=== PATIENT | female | born 1960 | race Caucasian/White ===

== ENCOUNTER → 2017-01-19 | Outpatient (CLI) | payer MEDICARE, MEDICAID ==
[~2017-01-19] MED LIST: ALBU18HF; ALBU8.5H3 INH; ALBU8.5H5 INH; ARIP5TAB6 PO; ASPI-621 PO; BENZ100C4 PO; BISA10SU54 PR; CARI350T PO; CARI350T14 PO; CITA20TA5 PO; CYCL15CA; DIVA250T4 PO; DOCU-30 PO; ENOX40SY4 SQ; ESCI10TA10 PO; FLUO10CA7 PO; FLUO20TA25 PO; FLUO40CA2 PO; FLUO40CA9; GABA300C10 PO; GUAI5SYR PO; KETO10TA PO; LORA2TAB PO; METH4TAB7 PO; METO25TA35 PO; METO25TA91 PO; NICO1PAT4 TD; NITR0.4T8 SL; OMEP-110 PO; OMEP10CA4 PO; ONDA-39 PO; ONDA-40 PO; ONDA4FIL4; OXYGEN INH; POLY17PO5 PO; PROM25AM6 PR; PROM25SU34 RC; PROM5POW; SIMV20TA3 PO; SIMV40TA3 PO; SOY155CA PO; VARE1TAB20
[2017-01-19 16:00] LABS: BLOOD UREA NITROGEN 21 mg/dL (7-18)
[2017-01-19 16:05] LABS: ASPARTATE AMINO TRANSFERASE 16 U/L (15-37)
== END | disposition home or self-care (01) ==
LOC: CFH 11:34
PROVIDERS: ATTEND Family Medicine
DX: Z12.31 Encounter for screening mammogram for malignant neoplasm of breast (principal); E78.2 Mixed hyperlipidemia; I10 Essential (primary) hypertension
CPT/HCPCS: 36415; 80053; 80061; 82043; G0202

== ENCOUNTER 2017-11-21 12:30 | Observation (INO) | payer MEDICARE, MEDICAID ==
[~2017-11-21] VITALS: Ht 165.1 cm; Wt 96.4 kg
[~2017-11-21 12:30] MED LIST changes: -ALBU8.5H3 INH; +ALBU8.5H8 INH; +ARIP5TAB13 PO; -ARIP5TAB6 PO; +BENZ-17 PO; -BENZ100C4 PO; -CYCL15CA; +CYCL15CA20; +DOCU-131 PO; -DOCU-30 PO; +NICO-486 TD; -NICO1PAT4 TD; +NITR0.4T28 SL; -NITR0.4T8 SL; -ONDA-39 PO; -ONDA-40 PO; +ONDA4TAB12 PO; +ONDA8TAB15 PO
[2017-11-21 14:11] LABS: BASOPHILS # (AUTO) 0.09 x10^3/uL (0-0.1); BASOPHILS % (AUTO) 1 % (0-1); EOSINOPHILS # (AUTO) 0.26 x10^3/uL (0-0.4); EOSINOPHILS % (AUTO) 2 % (1-7); LYMPHOCYTES # (AUTO) 4.89 x10^3/uL (1-3.4); LYMPHOCYTES % (AUTO) 44 % (22-44); MD NO; MEAN CORPUSCULAR HEMOGLOBIN 33.1 pg (27.0-34.8); MEAN CORPUSCULAR HGB CONC 33.7 g/dL (32.4-35.8); MEAN CORPUSCULAR VOLUME 98.3 fL (80-100); MEAN PLATELET VOLUME 8.8 fL (7.4-10.4); MONOCYTES # (AUTO) 0.83 x10^3/uL (0.2-0.8); MONOCYTES % (AUTO) 7 % (2-9); NEUTROPHILS # (AUTO) 5.14 x10^3/uL (1.8-6.8); NEUTROPHILS % (AUTO) 46 % (42-75); PLATELET COUNT 254 x10^3/uL (130-400); RED BLOOD COUNT 4.46 x10^6/uL (3.82-5.3); RED CELL DISTRIBUTION WIDTH 13.1 % (9.6-15.2)
[2017-11-21 14:26] LABS: CHLORIDE 107 mmol/L (98-107)
[2017-11-21 14:31] LABS: ALANINE AMINOTRANSFERASE 38 U/L (12-78); ALBUMIN 3.8 g/dL (3.4-5.0); ALKALINE PHOSPHATASE 111 U/L (45-117); ANION GAP 6 mmol/L (5-15); BILIRUBIN,TOTAL 0.4 mg/dL (0.2-1.0); CALCIUM 8.7 mg/dL (8.5-10.1); CREATININE 1.06 mg/dL (0.55-1.02); TOTAL PROTEIN 7.6 g/dL (6.4-8.2)
[2017-11-21 14:37] LABS: MICROSCOPIC AUTO
[2017-11-21 14:39] LABS: CULTURE INDICATED? YES
[2017-11-21 14:55] LABS: SALICYLATE LEVEL 2.9 mg/dL (2.8-20.0)
[2017-11-21 14:57] LABS: AMPHETAMINE SCREEN, URINE Negative (Negative); BARBITURATE SCREEN, URINE Negative (Negative); BENZODIAZEPINE SCREEN, URINE Negative (Negative); CANNABINOID SCREEN, URINE Positive (Negative); COCAINE SCREEN, URINE Negative (Negative); METHADONE SCREEN, URINE Negative (Negative); OPIATE SCREEN, URINE Negative (Negative)
[2017-11-21 14:58] LABS: ACETAMINOPHEN 2 mcg/mL (10-30)
[2017-11-21] MEDS ORDERED: KETOROLAC 30 MG/1 ML ONE (15:45)
[2017-11-21] MEDS ORDERED: ACETAMINOPHEN 500 MG TABLET ONE (15:45)
[2017-11-21] MEDS ORDERED: ACETAMINOPHEN 500 MG TABLET PO ONE (16:00)
[2017-11-21] MEDS ORDERED: KETOROLAC 30 MG/1 ML IM ONE (16:00)
[2017-11-21] MEDS ORDERED: DIVALPROEX 500 MG TAB.ER.24H PO ONE (20:00)
[2017-11-21] MEDS ORDERED: ACETAMINOPHEN 325 MG TABLET PO PRN (21:30)
[2017-11-21] MEDS ORDERED: HALOPERIDOL 5 MG/ML IM PRN (21:30)
[2017-11-21] MEDS: DIVALPROEX 250 MG TABLET.DR PO SCH (21:30)
[2017-11-21] MEDS ORDERED: ONDANSETRON ODT 4 MG PO PRN (21:30)
[2017-11-21] MEDS ORDERED: GABAPENTIN 300 MG CAPSULE ONE (22:08)
[2017-11-21] MEDS: LACTULOSE 10 GM/15 ML UDC PO SCH (23:06)
[2017-11-21] MEDS: SIMVASTATIN 20 MG TABLET PO SCH (23:06)
[2017-11-21] MEDS: GABAPENTIN 300 MG CAPSULE PO SCH (23:06)
[2017-11-22] MEDS ORDERED: GABAPENTIN 300 MG CAPSULE ONE ×3 (08:12→20:59)
[2017-11-22] MEDS ORDERED: METOPROLOL TARTRATE 25 MG TABLET ONE (08:12)
[2017-11-22] MEDS: METOPROLOL TARTRATE 25 MG TABLET PO SCH (09:38)
[2017-11-22] MEDS: LACTULOSE 10 GM/15 ML UDC PO SCH ×2 (09:38→22:08)
[2017-11-22] MEDS: GABAPENTIN 300 MG CAPSULE PO SCH ×3 (09:38→22:07)
[2017-11-22] MEDS ORDERED: LORazepam 1MG TABLET ONE ×3 (09:39→21:49)
[2017-11-22] MEDS: LORazepam 1MG TABLET PO SCH ×3 (09:41→22:07)
[2017-11-22] MEDS: SIMVASTATIN 20 MG TABLET PO SCH (22:07)
[2017-11-22] MEDS: DIVALPROEX 250 MG TABLET.DR PO SCH (22:08)
[2017-11-23] MEDS: LACTULOSE 10 GM/15 ML UDC PO SCH ×2 (09:19→21:40)
[2017-11-23] MEDS: GABAPENTIN 300 MG CAPSULE PO SCH ×3 (09:19→21:39)
[2017-11-23] MEDS: METOPROLOL TARTRATE 25 MG TABLET PO SCH (09:19)
[2017-11-23] MEDS ORDERED: LORazepam 1MG TABLET ONE ×2 (09:54→15:30)
[2017-11-23] MEDS: LORazepam 1MG TABLET PO SCH ×3 (10:02→21:38)
[2017-11-23] MEDS ORDERED: HALOPERIDOL 5 MG/ML ONE (16:14)
[2017-11-23 20:19] VITALS: BP 145/81
[2017-11-23] MEDS: SIMVASTATIN 20 MG TABLET PO SCH (21:39)
[2017-11-23] MEDS: DIVALPROEX 250 MG TABLET.DR PO SCH (21:40)
[2017-11-24 07:54] VITALS: BP 107/83
[2017-11-24] MEDS: LACTULOSE 10 GM/15 ML UDC PO SCH ×2 (08:08→08:38)
[2017-11-24] MEDS: LORazepam 1MG TABLET PO SCH (08:08)
[2017-11-24] MEDS: GABAPENTIN 300 MG CAPSULE PO SCH (08:09)
[2017-11-24 09:21] VITALS: BP 120/76
[2017-11-24] MEDS: METOPROLOL TARTRATE 25 MG TABLET PO SCH (09:23)
== END 2017-11-24 14:28 ==
LOC: ED 17:39 → EDIP 19:51 → 2N 11-23 19:45
PROVIDERS: ADMIT Hospitalist; ATTEND Hospitalist
DX: M54.5 Low back pain (principal); R10.9 Unspecified abdominal pain; E78.5 Hyperlipidemia, unspecified; F20.9 Schizophrenia, unspecified; I10 Essential (primary) hypertension; I25.2 Old myocardial infarction; J43.9 Emphysema, unspecified; K21.9 Gastro-esophageal reflux disease without esophagitis; K59.09 Other constipation; G89.29 Other chronic pain; G40.909 Epilepsy, unspecified, not intractable, without status epilepticus; F31.89 Other bipolar disorder; F22 Delusional disorders; I20.9 Angina pectoris, unspecified; E78.00 Pure hypercholesterolemia, unspecified; F12.21 Cannabis dependence, in remission; F17.210 Nicotine dependence, cigarettes, uncomplicated; Z86.73 Personal history of transient ischemic attack (TIA), and cerebral infarction without residual deficits; Z90.721 Acquired absence of ovaries, unilateral; Z90.710 Acquired absence of both cervix and uterus; Z87.440 Personal history of urinary (tract) infections; Z85.9 Personal history of malignant neoplasm, unspecified
CPT/HCPCS: 36415; 74022; 80053; 80307; 80329; 81001; 83690; 85025; 87086; 96372; 99285; G0378; J1630; J1885; G0480

== ENCOUNTER 2018-03-12 09:41 | Inpatient (IN) | payer MEDICARE, MEDICAID ==
[~2018-03-12] VITALS: Ht 165.1 cm; Wt 90.6 kg
[~2018-03-12 09:41] MED LIST changes: +ASPI-496 PO; +AZIT250T89 PO; +BENZ1TAB61 PO; -CITA20TA5 PO; +CITA20TA6 PO; +FLUO20CA8 PO; +LOSA50TA6 PO; +LURA40TA PO; +OMEP20TA62 PO; +VARE1TAB21 PO
[2018-03-12] MEDS ORDERED: morphine SULFATE 10 MG/ML, 1ML IVPush ONE (10:00)
[2018-03-12] MEDS ORDERED: MORPHINE SULFATE 4 MG/ML, 1ML ONE (10:27)
[2018-03-12 10:28] LABS: MEAN CORPUSCULAR HEMOGLOBIN 32.8 pg (27.0-34.8); MEAN CORPUSCULAR HGB CONC 33.1 g/dL (32.4-35.8); MEAN PLATELET VOLUME 8.6 fL (7.4-10.4); PLATELET COUNT 262 x10^3/uL (130-400); RED BLOOD COUNT 4.21 x10^6/uL (3.82-5.3); RED CELL DISTRIBUTION WIDTH 13.6 % (9.6-15.2)
[2018-03-12 10:37] LABS: ALBUMIN 3.1 g/dL (3.4-5.0); ANION GAP 7 mmol/L (5-15); CALCIUM 8.1 mg/dL (8.5-10.1); CHLORIDE 107 mmol/L (98-107); SALICYLATE LEVEL 2.8 mg/dL (2.8-20.0)
[2018-03-12 10:47] LABS: ALANINE AMINOTRANSFERASE 33 U/L (12-78); ALKALINE PHOSPHATASE 113 U/L (45-117); BILIRUBIN,TOTAL 0.3 mg/dL (0.2-1.0); CREATINE KINASE, TOTAL 249 U/L (26-192); CREATININE 0.88 mg/dL (0.55-1.02); TOTAL PROTEIN 6.7 g/dL (6.4-8.2)
[2018-03-12 10:48] LABS: ACETAMINOPHEN < 2 mcg/mL (10-30)
[2018-03-12 10:58] LABS: MD YES
[2018-03-12 11:01] LABS: BASOS#(MANUAL) 0.16 x10^3/uL (0-0.1); BASOS% (MANUAL) 2 % (0-1); EOS#(MANUAL) 0.32 x10^3/uL (0.0-0.4); EOS% (MANUAL) 4 % (1-7); LYMPH#(MANUAL) 5.21 x10^3/uL (1-3.4); LYMPHS% (MANUAL) 66 % (22-44); MONOS#(MANUAL) 0.24 x10^3/uL (0.3-2.7); MONOS% (MANUAL) 3 % (2-9); REACTIVE LYMPHS # (MANUAL) 0.16 x10^3/uL (0-0); REACTIVE LYMPHS % (MANUAL) 2 % (0-0); SEG#(MANUAL) 1.82 x10^3/uL (1.8-6.8); SEGS% (MANUAL) 23 % (42-75)
[2018-03-12 11:02] LABS: <PLATELET ESTIMATE> ADEQUATE; <PLT MORPHOLOGY> NORMAL PLT MORPH; <RBC MORPHOLOGY> NORMAL
[2018-03-12] MEDS ORDERED: KETOROLAC 30 MG/1 ML ONE (11:10)
[2018-03-12 12:04] LABS: MICROSCOPIC INDICATED
[2018-03-12 12:10] LABS: BARBITURATE SCREEN, URINE Negative (Negative); BENZODIAZEPINE SCREEN, URINE Negative (Negative); CANNABINOID SCREEN, URINE Positive (Negative); COCAINE SCREEN, URINE Negative (Negative)
[2018-03-12 12:13] LABS: AMPHETAMINE SCREEN, URINE Negative (Negative); METHADONE SCREEN, URINE Negative (Negative); OPIATE SCREEN, URINE Negative (Negative)
[2018-03-12 12:20] LABS: CULTURE INDICATED? YES
[2018-03-12] MEDS ORDERED: KETOROLAC 30 MG/1 ML IM ONE (12:30)
[2018-03-12] MEDS ORDERED: OLANZAPINE 5 MG TABLET PO ONE (13:30)
[2018-03-12] MEDS ORDERED: ONDANSETRON ODT 4 MG PO PRN (15:30)
[2018-03-12] MEDS ORDERED: HALOPERIDOL 5 MG/ML IM PRN (15:30)
[2018-03-12] MEDS ORDERED: LORazepam 2 MG/ML, 1ML IM PRN (15:30)
[2018-03-12] MEDS ORDERED: OLANZAPINE 5 MG TABLET ONE (15:31)
[2018-03-12] MEDS ORDERED: GABAPENTIN 300 MG CAPSULE ONE (15:47)
[2018-03-12] MEDS ORDERED: ACETAMINOPHEN 325 MG TABLET ONE (15:47)
[2018-03-12 16:11] LABS: FREE T4 (FREE THYROXINE) 0.97 ng/dL (0.76-1.46); THYROID STIMULATING HORMONE 2.17 mIU/L (0.358-3.740)
[2018-03-12] MEDS ORDERED: CEFTRIAXONE PMX 2GM/50ML 50 ML IV SCH (17:00)
[2018-03-12] MEDS: NICOTINE 21 MG/24 HR PATCH.TD24 TD SCH (17:02)
[2018-03-12] MEDS: SODIUM CHLORIDE 0.9% 1,000 ML IV SCH (17:02)
[2018-03-12] MEDS: ACETAMINOPHEN 325 MG TABLET PO PRN ×2 (17:02→22:00)
[2018-03-12] MEDS: PANTOPROZOLE 40MG TABLET PO SCH (17:02)
[2018-03-12] MEDS: GABAPENTIN 300 MG CAPSULE PO SCH ×2 (17:02→21:44)
[2018-03-12 17:34] VITALS: BP 105/73
[2018-03-12] MEDS: ENOXAPARIN 40 MG/0.4 ML SQ SCH (18:13)
[2018-03-12 19:37] VITALS: BP 112/78
[2018-03-12] MEDS: DIVALPROEX 500 MG TABLET.DR PO SCH (21:44)
[2018-03-12] MEDS: SIMVASTATIN 20 MG TABLET PO SCH (21:44)
[2018-03-12] MEDS: OLANZAPINE 5 MG TABLET PO SCH (21:44)
[2018-03-12] MEDS ORDERED: OMNIPAQUE 350 MG/ML, 75ML BOTTLE ONE (22:27)
[2018-03-13 01:55] VITALS: BP 116/76
[2018-03-13] MEDS: ACETAMINOPHEN 325 MG TABLET PO PRN ×2 (03:14→22:17)
[2018-03-13] MEDS: PANTOPROZOLE 40MG TABLET PO SCH ×2 (05:02→17:12)
[2018-03-13 05:17] LABS: ALBUMIN 3.1 g/dL (3.4-5.0); ANION GAP 7 mmol/L (5-15); CALCIUM 8.2 mg/dL (8.5-10.1); CHLORIDE 108 mmol/L (98-107)
[2018-03-13 05:21] LABS: ALANINE AMINOTRANSFERASE 32 U/L (12-78); ALKALINE PHOSPHATASE 124 U/L (45-117); BILIRUBIN,TOTAL 0.3 mg/dL (0.2-1.0); CREATININE 1.03 mg/dL (0.55-1.02); TOTAL PROTEIN 6.8 g/dL (6.4-8.2)
[2018-03-13 07:16] VITALS: BP 132/88
[2018-03-13] MEDS: SODIUM CHLORIDE 0.9% 1,000 ML IV SCH ×2 (08:39→17:30)
[2018-03-13] MEDS: METOPROLOL TARTRATE 25 MG TABLET PO SCH (08:39)
[2018-03-13] MEDS: FLUOXETINE HCL 20 MG CAPSULE PO SCH (08:40)
[2018-03-13] MEDS: DIVALPROEX 500 MG TABLET.DR PO SCH ×2 (08:40→22:16)
[2018-03-13] MEDS: LOSARTAN 50MG TABLET PO SCH (08:40)
[2018-03-13] MEDS: GABAPENTIN 300 MG CAPSULE PO SCH ×3 (08:40→22:17)
[2018-03-13 14:03] VITALS: BP 128/81
[2018-03-13] MEDS: ENOXAPARIN 40 MG/0.4 ML SQ SCH (17:12)
[2018-03-13] MEDS: NICOTINE 21 MG/24 HR PATCH.TD24 TD SCH (17:13)
[2018-03-13] MEDS ORDERED: CEFDINIR 300 MG CAPSULE PO SCH (18:00)
[2018-03-13 19:12] VITALS: BP 114/79
[2018-03-13] MEDS: CEFDINIR 300 MG CAPSULE PO SCH (22:16)
[2018-03-13] MEDS: OLANZAPINE 5 MG TABLET PO SCH (22:17)
[2018-03-13] MEDS: SIMVASTATIN 20 MG TABLET PO SCH (22:17)
[2018-03-14 02:14] VITALS: BP 126/85
[2018-03-14] MEDS: SODIUM CHLORIDE 0.9% 1,000 ML IV SCH ×2 (02:34→09:35)
[2018-03-14] MEDS: PANTOPROZOLE 40MG TABLET PO SCH (05:32)
[2018-03-14 06:27] VITALS: BP 150/96
[2018-03-14] MEDS: LOSARTAN 50MG TABLET PO SCH (09:44)
[2018-03-14] MEDS: DIVALPROEX 500 MG TABLET.DR PO SCH (09:44)
[2018-03-14] MEDS: FLUOXETINE HCL 20 MG CAPSULE PO SCH (09:44)
[2018-03-14] MEDS: GABAPENTIN 300 MG CAPSULE PO SCH (09:44)
[2018-03-14] MEDS: METOPROLOL TARTRATE 25 MG TABLET PO SCH (09:44)
[2018-03-14] MEDS: CEFDINIR 300 MG CAPSULE PO SCH ×2 (09:44→14:52)
[2018-03-14 13:31] VITALS: BP 132/88
[2018-03-14] MEDS ORDERED: METO25TA35 PO (13:55)
[2018-03-14] MEDS ORDERED: OLAN5TAB9 PO (13:55)
[2018-03-14] MEDS ORDERED: NICO-487 TD (13:55)
== END 2018-03-14 15:30 | DRG 189 ==
LOC: ED 10:15 → EDIP 14:06 → OBSVTOIN 15:13 → 3NE 16:24
PROVIDERS: ADMIT Internal Medicine; ATTEND Internal Medicine
DX: J96.01 Acute respiratory failure with hypoxia (principal); N39.0 Urinary tract infection, site not specified; F31.2 Bipolar disorder, current episode manic severe with psychotic features; E78.00 Pure hypercholesterolemia, unspecified; E78.5 Hyperlipidemia, unspecified; G40.909 Epilepsy, unspecified, not intractable, without status epilepticus; I25.2 Old myocardial infarction; I10 Essential (primary) hypertension; J43.9 Emphysema, unspecified; K21.9 Gastro-esophageal reflux disease without esophagitis; Z80.0 Family history of malignant neoplasm of digestive organs; Z80.6 Family history of leukemia; Z82.49 Family history of ischemic heart disease and other diseases of the circulatory system; Z86.73 Personal history of transient ischemic attack (TIA), and cerebral infarction without residual deficits; Z87.891 Personal history of nicotine dependence; Z90.49 Acquired absence of other specified parts of digestive tract; Z90.710 Acquired absence of both cervix and uterus
CPT/HCPCS: 36415; 70450; 71260; 80053; 80164; 80307; 80329; 81001; 82550; 84439; 84443; 85025; 87040; 87086; 93005; 96372; 99285; J0696; J1650; J1885; Q9967; G0378; G0480; J2060; J7030

== ENCOUNTER 2018-07-01 14:32 | Emergency (ER) | payer MEDICARE, MEDICAID ==
[~2018-07-01] VITALS: Ht 167.6 cm; Wt 100.0 kg
[~2018-07-01 14:32] MED LIST changes: -LOSA50TA6 PO; +LOSA50TA7 PO; +NICO-487 TD; +OLAN5TAB9 PO; -ONDA4FIL4; +ONDA4FIL5; +QUET100T PO; +ZIPR60CA3 PO
[2018-07-01] MEDS ORDERED: LORazepam 2 MG/ML, 1ML ONE (14:53)
[2018-07-01 15:00] LABS: BASOPHILS # (AUTO) 0.05 x10^3/uL (0-0.1); BASOPHILS % (AUTO) 1 % (0-1); EOSINOPHILS # (AUTO) 0.03 x10^3/uL (0-0.4); EOSINOPHILS % (AUTO) 0 % (1-7); LYMPHOCYTES # (AUTO) 3.84 x10^3/uL (1-3.4); LYMPHOCYTES % (AUTO) 36 % (22-44); MD NO; MEAN CORPUSCULAR HGB CONC 33.8 g/dL (32.4-35.8); MEAN CORPUSCULAR VOLUME 97.6 fL (80-100); MEAN PLATELET VOLUME 8.7 fL (7.4-10.4); MONOCYTES # (AUTO) 0.66 x10^3/uL (0.2-0.8); MONOCYTES % (AUTO) 6 % (2-9); NEUTROPHILS # (AUTO) 6.09 x10^3/uL (1.8-6.8); NEUTROPHILS % (AUTO) 57 % (42-75); PLATELET COUNT 271 x10^3/uL (130-400); RED BLOOD COUNT 4.56 x10^6/uL (3.82-5.3); RED CELL DISTRIBUTION WIDTH 13.2 % (9.6-15.2)
[2018-07-01] MEDS ORDERED: LORazepam 1MG TABLET PO ONE (15:00)
[2018-07-01] MEDS ORDERED: LORazepam 2 MG/ML, 1ML IVPush ONE (15:00)
[2018-07-01 15:10] LABS: ALBUMIN 3.8 g/dL (3.4-5.0); ANION GAP 8 mmol/L (5-15); CALCIUM 9.5 mg/dL (8.5-10.1); CHLORIDE 107 mmol/L (98-107); CREATININE 1.21 mg/dL (0.55-1.02)
[2018-07-01 16:52] LABS: MICROSCOPIC AUTO
[2018-07-01 16:53] LABS: CULTURE INDICATED? YES
[2018-07-01 17:44] VITALS: BP 175/101
== END 2018-07-01 18:45 | disposition home or self-care (01) ==
LOC: ED 17:07
DX: F15.950 Other stimulant use, unspecified with stimulant-induced psychotic disorder with delusions (principal); H10.021 Other mucopurulent conjunctivitis, right eye; N30.00 Acute cystitis without hematuria; F31.9 Bipolar disorder, unspecified; F20.9 Schizophrenia, unspecified; K21.9 Gastro-esophageal reflux disease without esophagitis; G40.909 Epilepsy, unspecified, not intractable, without status epilepticus; G43.909 Migraine, unspecified, not intractable, without status migrainosus; J43.9 Emphysema, unspecified; E78.00 Pure hypercholesterolemia, unspecified; I25.2 Old myocardial infarction; I10 Essential (primary) hypertension; Z86.73 Personal history of transient ischemic attack (TIA), and cerebral infarction without residual deficits; Z90.49 Acquired absence of other specified parts of digestive tract; Z90.710 Acquired absence of both cervix and uterus
CPT/HCPCS: 36415; 80048; 81001; 82040; 85025; 87086; 93005; 96374; 99285; J2060

== ENCOUNTER → 2019-08-13 | Outpatient (CLI) | payer MEDICARE, MEDICAID ==
[~2019-08-13] VITALS: Ht 167.6 cm; Wt 107.6 kg
[~2019-08-13] MED LIST changes: -ASPI-621 PO; +ASPI81TA45 PO; +EREN70AU SQ; +HYDR25TA6 PO; +LOSA50TA14 PO; -LOSA50TA7 PO; +MEPERIDINE/PF 100 MG/ML IM ONE; -OMEP10CA4 PO; +OMEP10CA5 PO; +ONDANSETRON 2MG/ML, 2ML IM ONE; +OXCA300T19 PO; +ZIPR60CA2 PO
[2019-08-13 13:20] VITALS: BP 121/89
== END | disposition home or self-care (01) ==
LOC: INFUSION 10:33
PROVIDERS: ATTEND Psychiatry & Neurology Neurology
DX: G43.811 Other migraine, intractable, with status migrainosus (principal)
CPT/HCPCS: 96372; J2175; J2405

== ENCOUNTER 2019-11-01 13:52 | Outpatient (CLI) | payer MEDICARE, MEDICAID ==
[~2019-11-01] VITALS: Ht 167.6 cm; Wt 103.0 kg
[~2019-11-01 13:52] MED LIST changes: +FLUO10CA14 PO; -FLUO10CA7 PO; +FLUO20CA23 PO; -FLUO20CA8 PO; -MEPERIDINE/PF 100 MG/ML IM ONE; +ONDA-89 PO; -ONDA4TAB12 PO; -ONDA8TAB15 PO; +ONDA8TAB18 PO; -ONDANSETRON 2MG/ML, 2ML IM ONE; +SIMV20TA19 PO; -SIMV20TA3 PO; +SIMV40TA20 PO; -SIMV40TA3 PO
[2019-11-01 15:24] VITALS: BP 112/82
[2019-11-01] MEDS ORDERED: MEPERIDINE/PF 100 MG/ML ONE (15:39)
[2019-11-01] MEDS ORDERED: ONDANSETRON 2MG/ML, 2ML ONE (15:48)
[2019-11-01] MEDS ORDERED: MEPERIDINE/PF 100 MG/ML IM ONE (16:00)
[2019-11-01] MEDS ORDERED: ONDANSETRON 2MG/ML, 2ML IV ONE (16:00)
== END 2019-11-01 23:59 | disposition home or self-care (01) ==
LOC: INFUSION 13:52
PROVIDERS: ATTEND Psychiatry & Neurology Neurology
DX: G43.719 Chronic migraine without aura, intractable, without status migrainosus (principal)
CPT/HCPCS: 96372; J2175; J2405